=== PATIENT | female | born 1955 | race Caucasian/White ===

== ENCOUNTER 2022-06-18 17:53 | Emergency (ER) | payer OTHER ==
[~2022-06-18] VITALS: Ht 154.9 cm; Wt 50.9 kg
[2022-06-18] MEDS ORDERED: NORCO, ANEXSIA 5/325MG TABLET (HYDROcodone/ACETAMINOPHEN) PO ONE (20:40)
[2022-06-18] MEDS ORDERED: CYCLOBENZAPRINE 10MG TABLET PO ONE (20:40)
[2022-06-18] MEDS ORDERED: HYDR-3713 PO (20:48)
[2022-06-18] MEDS ORDERED: CYCL-707 PO (20:48)
[2022-06-18 21:03] VITALS: BP 161/85
== END 2022-06-18 21:04 | disposition home or self-care (01) ==
LOC: EDBD 17:53 → M ED 17:53
DX: S22.41XA Multiple fractures of ribs, right side, initial encounter for closed fracture (principal); X58.XXXA Exposure to other specified factors, initial encounter; Y92.89 Other specified places as the place of occurrence of the external cause; Y93.89 Activity, other specified; Y99.8 Other external cause status; F17.210 Nicotine dependence, cigarettes, uncomplicated